=== PATIENT | male | born 1960 | race Caucasian/White ===

== ENCOUNTER 2017-12-17 14:22 | Outpatient (CLI) | payer BC ==
--- NOTE | 2017-12-17 16:06 | RAD ---
RIGHT CALCANEUS 2 VIEWS: HISTORY: Pain. COMPARISON: None. FINDINGS: Minimal spurring of the calcaneus at the plantar aponeurosis insertion site. There is mild bone mine ralization. No evidence of fracture. IMPRESSION: As above. POS: PATY
== END 2017-12-17 14:23 | disposition home or self-care (01) ==
LOC: RAD-FRANK 14:22
PROVIDERS: ATTEND Nurse Practitioner Family
DX: M79.671 Pain in right foot (principal)

== ENCOUNTER 2021-08-09 15:50 | Outpatient (CLI) | payer BC ==
[2021-08-09 16:37] LABS: #Basophils 0.1 10x3/uL (0.0-0.2); #Eosinphils 0.1 10x3/uL (0.0-0.5); #Monocytes 0.8 10x3/uL (0.0-1.1); #Neutrophils 4.7 10x3/uL (1.5-8.4); %Basophils 0.6 % (0.0-2.0); %Eosinophils 1.6 % (0.0-6.0); %Lymphocytes 28.9 % (18.0-47.0); %Monocytes 9.5 % (0.0-10.0); %Neutrophils 59.1 % (40.0-75.0); Hemoglobin 14.6 g/dL (13.5-17.5); Mean Corpuscular HGB CONC 34.1 g/dL (32.0-36.0); Mean Corpuscular Hemoglobin 30.8 pg (27.0-33.0); Mean Corpuscular Volume 90.3 fl (81.2-95.1); Platelet Count 245 10x3/uL (150-450); RBC Distribution Width 13.2 % (11.5-14.5); Red Blood Cell (RBC) Count 4.74 10x6/uL (4.32-5.72)
[2021-08-09 16:50] LABS: Anion Gap 14 mmol/L (10-20); BUN (Urea Nitrogen) 24 mg/dL (8.4-25.7); Calc. Creatinine Clearance 0 mL/min (70-130); Calcium 9.6 mg/dL (7.8-10.44); Carbon Dioxide 25 mmol/L (22-29); Chloride 105 mmol/L (98-107); Glucose 100 mg/dL (70-105); Potassium 4.4 mmol/L (3.5-5.1); Sodium 140 mmol/L (136-145)
[2021-08-09 16:56] LABS: INR-International Normal Ratio 0.9; Prothrombin Time 10.3 sec (9.5-12.1)
[2021-08-10 15:49] LABS: SARS-CoV-2 PCR by NAA Not Detected (NotDetected)
== END 2021-08-09 15:51 | disposition home or self-care (01) ==
LOC: LABBT 15:50
PROVIDERS: ATTEND Orthopaedic Surgery
DX: Z01.818 Encounter for other preprocedural examination (principal); M17.31 Unilateral post-traumatic osteoarthritis, right knee; Z20.822 Contact with and (suspected) exposure to COVID-19
CPT/HCPCS: 80048; 85025; 85610; 87081; 93005; 93010; U0003; U0005

== ENCOUNTER 2022-04-05 07:57 | Outpatient (CLI) | payer BC | END 2022-04-05 07:58 | disposition home or self-care (01) | LOC: RAD-FRANK 07:57 | PROVIDERS: ATTEND Nurse Practitioner Family | DX: M25.551 Pain in right hip (principal) ==

== ENCOUNTER 2022-04-23 12:16 | Outpatient (CLI) | payer BC | END 2022-04-23 12:17 | disposition home or self-care (01) | LOC: MRI 12:16 | PROVIDERS: ATTEND Nurse Practitioner Family | DX: M25.551 Pain in right hip (principal) ==

== ENCOUNTER 2022-05-21 11:23 | Outpatient (CLI) | payer BC | END 2022-05-21 11:24 | disposition home or self-care (01) | LOC: RAD-FRANK 11:23 | PROVIDERS: ATTEND Nurse Practitioner Family | DX: R05.9 Cough, unspecified (principal) | CPT/HCPCS: 71046 ==

== ENCOUNTER 2022-10-17 05:55 | Observation (INO) | payer BC ==
[2022-10-14 10:17] VITALS: BMI 31.6
[2022-10-17] MEDS ORDERED: Vancomycin (BATCH) 1.5 GRAM/300 ML BAG ONE (06:13)
[2022-10-17] MEDS ORDERED: Sodium Chloride 0.9% 100 ML ONE ×2 (06:13→07:20)
[2022-10-17] MEDS ORDERED: Tranexamic Acid 1,000 MG/10 ML VIAL ONE (06:13)
[2022-10-17] MEDS ORDERED: Dexamethasone 4 mg/ml Vial ONE (07:00)
[2022-10-17] MEDS ORDERED: Ropivacaine 0.5% HCl/PF (150 MG/30 ML VIAL) ONE (07:00)
[2022-10-17] MEDS ORDERED: Midazolam HCl 2 mg/2 ml Vial ONE (07:00)
[2022-10-17] MEDS ORDERED: fentaNYL 50 mcg/mL 1 mL Vial ONE (07:00)
[2022-10-17] MEDS ORDERED: Dexmedetomidine 200 MCG/2 ML VIAL ONE (07:02)
[2022-10-17] MEDS ORDERED: CEFAZOLIN 2 GM VIAL ONE (07:20)
[2022-10-17] MEDS ORDERED: Propofol 1,000 MG/100 ML VIAL IV ONE (07:27)
[2022-10-17] MEDS ORDERED: ePHEDrine Sulfate 50 MG/10 ML VIAL ONE (07:44)
[2022-10-17] MEDS ORDERED: Bupivacaine HCl 0.5%/Epinephrine 1:200,000/PF 30 ml Vial ONE ×2 (08:42→09:27)
[2022-10-17] MEDS ORDERED: Bupivacaine PF 0.5% 30 ML VIAL ONE (08:42)
[2022-10-17] MEDS ORDERED: Bupivacaine/Epinephrine 0.25% 30 ML VIAL ONE (08:42)
[2022-10-17] MEDS ORDERED: Bupivacaine 0.25% HCL 30 ML VIAL ONE (08:42)
[2022-10-17] MEDS ORDERED: Ondansetron PF 4 MG/2 ML Vial IVP PRN (09:26)
[2022-10-17] MEDS ORDERED: HYDROcodone/Acetaminophen 10/325 mg Tablet PO PRN (09:26)
[2022-10-17] MEDS ORDERED: Acetaminophen 325 MG TAB PO PRN (09:26)
[2022-10-17] MEDS ORDERED: fentaNYL 50 mcg/mL 1 mL Vial SLOW IVP PRN (09:26)
[2022-10-17] MEDS ORDERED: Promethazine HCl 25 MG/ML VIAL IM PRN (09:26)
[2022-10-17] MEDS ORDERED: diphenhydrAMINE 25 MG CAP PO PRN (09:26)
[2022-10-17] MEDS ORDERED: Zolpidem Tartrate 5 MG TAB PO PRN (09:26)
[2022-10-17] MEDS: Sodium Chloride 0.9% 1,000 ML IV SCH ×2 (10:53→21:24)
[2022-10-17] MEDS: Ketorolac Tromethamine 30 MG/ML VIAL IVP SCH ×2 (13:17→21:23)
[2022-10-17] MEDS: CEFAZOLIN 2 GM in Sodium Chloride 0.9% 100 ML IVPB SCH ×2 (13:18→21:24)
[2022-10-17] MEDS: HYDROcodone/Acetaminophen 10/325 mg Tablet PO PRN (13:20)
[2022-10-17] MEDS ORDERED: Losartan 25 MG TAB PO SCH (21:00)
[2022-10-17] MEDS ORDERED: Non-Formulary Item 1 EACH (Losartan Potassium [Losartan Potassium] 50 MG Tablet) PO SCH (21:00)
[2022-10-17] MEDS: Aspirin 81 mg Enteric Coated Tablet PO SCH (21:22)
[2022-10-17] MEDS: Ferrous Gluconate 324 MG TAB PO SCH (21:25)
[2022-10-17] MEDS: Senokot S 8.6-50 MG TAB PO SCH (21:26)
[2022-10-18] MEDS: Sodium Chloride 0.9% 1,000 ML IV SCH (04:23)
[2022-10-18 05:05] LABS: Hemoglobin 13.1 g/dL (14.0-18.0); Mean Corpuscular HGB CONC 33.6 g/dL (32.0-36.0); Mean Corpuscular Hemoglobin 32.2 pg (27.0-31.0); Mean Corpuscular Volume 95.8 fl (78.0-98.0); Mean Platelet Volume 10.7 fL (7.4-10.4); Platelet Count 204 10x3/uL (130-400); RBC Distribution Width 12.8 % (11.5-14.5); Red Blood Cell (RBC) Count 4.07 mill/uL (4.70-6.10); White Blood Cell (WBC) Count 12.5 10x3/uL (4.8-10.8)
[2022-10-18] MEDS: Ketorolac Tromethamine 30 MG/ML VIAL IVP SCH (05:22)
[2022-10-18] MEDS: HYDROcodone/Acetaminophen 10/325 mg Tablet PO PRN (06:31)
[2022-10-18 07:53] VITALS: BP 120/78; TEMP 98.2
[2022-10-18] MEDS: Ferrous Gluconate 324 MG TAB PO SCH (08:42)
[2022-10-18] MEDS: Senokot S 8.6-50 MG TAB PO SCH (08:42)
[2022-10-18] MEDS: Aspirin 81 mg Enteric Coated Tablet PO SCH (08:42)
[2022-10-18] MEDS ORDERED: Multivitamin W/ Minerals 1 TAB PO SCH (09:00)
== END 2022-10-18 11:45 | disposition home or self-care (01) ==
LOC: SDC 05:55 → SJJU 10:51
PROVIDERS: ADMIT Orthopaedic Surgery; ATTEND Orthopaedic Surgery
PROC: 0SR906Z Replacement of Right Hip Joint with Oxidized Zirconium on Polyethylene Synthetic Substitute, Open Approach (ICD-10-PCS; principal; 2022-10-18)
DX: M16.11 Unilateral primary osteoarthritis, right hip (principal); K21.9 Gastro-esophageal reflux disease without esophagitis; I10 Essential (primary) hypertension; Z90.49 Acquired absence of other specified parts of digestive tract; Z88.0 Allergy status to penicillin; Z79.899 Other long term (current) drug therapy
CPT/HCPCS: 36415; 64450; 85027; C1776; J1100; J1885; J2250; J2405; J2704; J2795; J3010; J3370; J3490; S0020